=== PATIENT | female | born 1985 | race Caucasian/White ===

== ENCOUNTER 2020-01-22 09:39 | Emergency (ER) | payer OTHER, SELFPAY ==
--- NOTE | 2020-01-22 10:04 | ED.LOWEXIN ---
HPI - Extremity Injury (Lower) General Chief Complaint: Extremity Injury, Lower Stated Complaint: twisted right knee two days ago Time Seen by Provider: 01/22/20 09:54 Source: patient Mode of arrival: Ambulatory Limitations: no limitations History of Present Illness HPI Narrative: 34-year-old female nonsmoker presents with her daughter and a chief complaint of a right knee injury suffered 2 days ago. Her and her significant other were wrestling and her knee was twisted underneath her while bending. She now has significant pain with bending or flexing her knee and notable swelling. 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 She denies numbness, tingling or weakness. She denies other injury. MD complaint: knee injury Onset (ago): day(s) Type of Injury: other Place: home Severity: moderate Relieving factors: rest Exacerbating factors: weight bearing, movement and palpation Context: other Associated symptoms: snap/pop sensation and swelling Other symptoms: none Review of Systems Constitutional Constitutional: Denies chills, Denies fatigue, Denies fever(s), Denies frequent falls, Denies lethargy and Denies weakness Eyes Eyes: Denies change in vision, Denies eye discharge, Denies irritation and Denies loss of vision ENT Ears, Nose, Mouth, and Throat: Denies change in voice, Denies dizziness, Denies neck pain, Denies sore throat and Denies throat swelling Cardiovascular Cardiovascular: Denies chest pain, Denies irregular heart rhythm, Denies lightheadedness, Denies palpitations, Denies dyspnea, Denies dyspnea on exertion and Denies orthopnea Respiratory Respiratory: Denies cough, Denies dyspnea, Denies dyspnea on exertion and Denies wheezing Gastrointestinal Gastrointestinal: Denies abdominal pain, Denies change in bowel habits, Denies diarrhea, Denies nausea and Denies vomiting Genitourinary Genitourinary: Denies hematuria, Denies flank pain, Denies urinary incontinence and Denies urinary urgency Musculoskeletal Musculoskeletal: Denies back pain, Reports joint swelling, Reports limited range of motion, Denies muscle weakness, Denies neck pain, Denies numbness and Denies tingling Integumentary/Breasts Skin/Breast: Denies pruritus, Denies erythema, Denies rash and Denies wounds Neurologic Neurologic: Denies behavioral changes, Denies confusion, Denies dizziness, Denies frequent falls, Denies loss of vision, Denies numbness, Denies tingling and Denies weakness Psychiatric Psychiatric: Denies anxiety, Denies behavioral changes, Denies confusion, Denies depression, Denies homicidal ideation and Denies suicidal ideation Endocrine Endocrine: Denies fatigue, Denies flushing and Denies palpitations Hematologic/Lymphatic Hematologic/Lymphatic: Denies easy bruising Allergic/Immunologic Allergic/Immunologic: Denies urticaria, Denies throat swelling and Denies wheezing Patient History Social History Smoking Status: Never smoker Smoking Status: Never smoker Substance Use Type: does not use Exam Narrative Exam Narrative: GENERAL: [34] year old patient appears stated age. Well-nourished, well-developed patient, in mild distress. HEAD: Atraumatic. Normocephalic. EYES: Pupils equal round and reactive. Extraocular motions intact. No scleral icterus. No injection or drainage. ENT: Nose without bleeding, purulent drainage. Throat without erythema, tonsillar hypertrophy or exudate. Airway patent. NECK: Trachea midline. Non tender CARDIOVASCULAR: Regular rate and rhythm without murmurs, gallops, or rubs. RESPIRATORY: Clear to auscultation. Breath sounds equal bilaterally. No wheezes, rales, or rhonchi. GASTROINTESTINAL: Abdomen soft, non-tender, nondistended. EXTREMITIES: Impressive effusion of right knee without redness or warmth. No significant joint line or bony tenderness. No obvious ligamentous laxity. Negative Michell's. BACK: Nontender without deformity or crepitance. No flank tenderness. NEURO: AOx3. SKIN: No rash or erythema of visible areas Initial Vital Signs Initial Vital Signs: Vital Signs Temperature 97.2 F L 01/22/20 10:18 Pulse Rate 76 01/22/20 10:18 Respiratory Rate 12 01/22/20 10:18 Blood Pressure 140/75 01/22/20 10:18 Pulse Oximetry 98 01/22/20 10:18 Procedures Orthopedic Splinting/Casting Injury #1: Side: right Lower Extremity Injury Location: knee Lower Extremity Immobilizer: knee immobilizer Post splinting neuro exam: intact Post splinting vascular exam: intact Placed by: Nursing MDM - Extremity Injury (Lower) Imaging Data Extremity x-ray #1: Radiologist's Impression: Chart Viewer Diagnostics DATE TYPE STATUS AUTHOR Hx 01/22/20 10:17 Yvette Cain Kellie Foote 34, F0 1985 [facility] ER, Main ED 89.358kg Extremity Injury, Lower Search Chart No Data to Display No Data to Display No Data to Display ONSET Today 11:30 Kellie Foote 34 F 1985 [place] [address] XRay Report Signed Patient: Kellie Foote MMR#: [id number] : 1985Acct:[id number] Age/Sex: 34 / FDate of Service: 01/22/20 Loc: ED Accession Number: [id number] Procedure: XR knee RT 3V Ordering Provider: Teodoro Hemphill D.O. PROCEDURE: XR KNEE RT 3V INDICATIONS: twisted knee 2 days ago/ pain TECHNIQUE: 3 views of the knee were acquired. COMPARISON: None. FINDINGS: Bones: No fractures or dislocations. No suspicious bony lesions. Soft tissues: Moderate knee joint effusion. No suspicious soft tissue calcifications. IMPRESSION: 1. Moderate knee joint effusion. 2. No acute fracture. No osseous lesion. If symptoms and/or clinical suspicion for pathology persist, further assessment with repeat, or advanced imaging (e.g., CT, MRI, or bone scan) may be helpful for further assessment. Dictated by: Yvette Cain M.D. on 01/22/2020 at 10:56 Approved by: Yvette Cain M.D. on 01/22/2020 at 10:56 Discharge Plan Departure Patient Disposition: Home Clinical Impression: Knee Injury Qualifiers: Encounter type: initial encounter Laterality: right Qualified Code(s): S89.91XA - Unspecified injury of right lower leg, initial encounter Discharge Date/Time: 01/22/20 11:47 Instructions: DI for Knee Effusion Activity Restrictions/Additional Instructions: *You have been diagnosed with [right knee injury with effusion, likely ligamentous injury] *What to do: *Take medications as directed *Follow up with your primary care provider in 2-3 days, call for an appointment. Let them know you were seen in the Emergency Department and that we ask that you be seen in follow up *Return to ER if you should have any new, worsening or concerning symptoms Referrals: Junior Carnes MD [Physician] - Stand Alone Forms: Work Release Note
--- NOTE | 2020-01-22 10:17 | DI.RAD.S_ITS ---
PROCEDURE: XR KNEE RT 3V INDICATIONS: twisted knee 2 days ago/ pain TECHNIQUE: 3 views of the knee were acquired. COMPARISON: None. FINDINGS: Bones: No fractures or dislocations. No suspicious bony lesions. Soft tissues: Moderate knee joint effusion. No suspicious soft tissue calcifications. IMPRESSION: 1. Moderate knee joint effusion. 2. No acute fracture. No osseous lesion. If symptoms and/or clinical suspicion for pathology persist, further assessment with repeat, or advanced imaging (e.g., CT, MRI, or bone scan) may be helpful for further assessment. Dictated by: Yvette Cain M.D. on 01/22/2020 at 10:56 Approved by: Yvette Cain M.D. on 01/22/2020 at 10:56
[2020-01-22 10:18] VITALS: BP 140/75; PULSE 76; RESP 12; TEMP 36.2; O2SAT 98
[2020-01-22 10:21] VITALS: BP 143/81; PULSE 80; RESP 12; O2SAT 100
[2020-01-22 11:30] VITALS: BP 139/81; PULSE 74; O2SAT 100
== END 2020-01-22 11:47 | disposition home or self-care (01) ==
PROVIDERS: Emergency Provider Emergency Medicine
DX: S89.91XA Unspecified injury of right lower leg, initial encounter (principal); Y93.72 Activity, wrestling
CPT/HCPCS: 73562; 99283